=== PATIENT | female | born 1965 | race Hispanic/Latino ===

== ENCOUNTER → 2019-06-02 | Outpatient (CLI) | payer BC, OTHER | END | disposition home or self-care (01) | LOC: RAH 13:48 | PROVIDERS: ATTEND Family Medicine | DX: Z12.31 Encounter for screening mammogram for malignant neoplasm of breast (principal) | CPT/HCPCS: 77067 ==

== ENCOUNTER 2021-04-02 12:30 | Inpatient (IN) | payer OTHER ==
[~2021-04-02] VITALS: Ht 149.9 cm; Wt 81.4 kg
[2021-04-02 14:13] LABS: BASOPHILS % (AUTO) 0.7 % (0.0-5.0); EOSINOPHILS % (AUTO) 3.3 % (0.0-8.0); HEMATOCRIT 44.5 % (36-48); LYMPHOCYTES % (AUTO) 18.2 % (21.0-51.0); MEAN CORPUSCULAR HEMOGLOBIN 30.6 pg (27.0-33.0); MEAN CORPUSCULAR HGB CONC 32.4 g/dL (32.0-36.0); MEAN CORPUSCULAR VOLUME 94.5 fL (79-99); MONOCYTES % (AUTO) 7.8 % (3.0-13.0); NEUTROPHILS % (AUTO) 69.6 % (40.0-77.0); PLATELET COUNT (AUTO) 252 K/uL (130-400); RED BLOOD CELL COUNT(AUTO) 4.71 MIL/uL (4.00-5.50); RED CELL DISTRIBUTION WIDTH 11.8 % (11.0-15.5); WHITE BLOOD COUNT (AUTO) 6.8 K/uL (4.8-10.8)
[2021-04-04 11:42] VITALS: BP 139/67
[2021-04-04] MEDS ORDERED: LISI30TA4 PO (12:08)
[2021-04-05] VITALS (23 sets, daily range): BP systolic 124–148; BP diastolic 71–85
[2021-04-05] MEDS ORDERED: LACTATED RINGERS 1000ML 1,000 ML IV ONE (06:12)
[2021-04-05] MEDS ORDERED: CEFAZOLIN SODIUM 1 GM VIAL ONE (06:12)
[2021-04-05] MEDS ORDERED: LIDOCAINE PF 100MG/5ML (2%) SYRINGE 5ML ONE (06:33)
[2021-04-05] MEDS ORDERED: ROCURONIUM 10MG/1ML SYR 10 MG/ML ML ONE (06:33)
[2021-04-05] MEDS ORDERED: PROPOFOL 10 MG/ML 20ML VIAL IV ONE (06:33)
[2021-04-05] MEDS ORDERED: MIDAZOLAM HCL 1 MG/ML 2ML VIAL ONE (06:33)
[2021-04-05] MEDS ORDERED: ONDANSETRON 4MG INJ ONE (06:34)
[2021-04-05] MEDS ORDERED: FENTANYL CITRATE PF 50 MCG/1 ML 2ML VIAL ONE ×3 (06:34→08:51)
[2021-04-05] MEDS ORDERED: MAGNESIUM SULFATE 1 GM/2 ML VIAL ONE (06:37)
[2021-04-05] MEDS ORDERED: KETAMINE 50MG/ML SYRINGE 50 MG/ML DISP.SYRIN IV ONE (06:37)
[2021-04-05] MEDS ORDERED: PHENYLEPHRINE HCL 10 MG/ML 1ML VIAL IV ONE (07:37)
[2021-04-05] MEDS ORDERED: EPHEDRINE SULFATE 50 MG/ML AMPULE ONE (07:37)
[2021-04-05] MEDS ORDERED: METOCLOPRAMIDE 10 MG/2 ML VIAL ONE (08:37)
[2021-04-05] MEDS ORDERED: LACTATED RINGERS 1000ML 1,000 ML IV SCH (09:00)
[2021-04-05] MEDS ORDERED: CEFAZOLIN 3GM /D5W 100ML 100 ML IV SCH (09:00)
[2021-04-05] MEDS ORDERED: GLYCOPYRROLATE 1 MG/5 ML SYRINGE ONE (09:05)
[2021-04-05] MEDS ORDERED: NEOSTIGMINE 5MG/5ML SYR IV ONE (09:05)
[2021-04-05] MEDS ORDERED: ROPIVACAINE 0.5% 5MG/ML 30ML IJ ONE (09:41)
[2021-04-05] MEDS ORDERED: LIDOCAINE 2%-EPI 1:200,000 20 ML VIAL IJ ONE (09:41)
[2021-04-05] MEDS ORDERED: KETOROLAC 30MG VIAL (30MG/ML) ONE (09:43)
[2021-04-05] MEDS ORDERED: DOCUSATE SODIUM 100 MG CAP PO PRN (11:30)
[2021-04-05] MEDS ORDERED: BISACODYL 10 MG SUPP.RECT RC PRN (11:30)
[2021-04-05] MEDS ORDERED: PROMETHAZINE HCL 25 MG/ML 1ML AMPULE IM PRN ×2 (11:30)
[2021-04-05] MEDS ORDERED: SIMETHICONE 80 MG TAB.CHEW PO PRN (11:30)
[2021-04-05] MEDS ORDERED: ONDANSETRON 4MG INJ IVP PRN (11:30)
[2021-04-05] MEDS ORDERED: IBUPROFEN 600 MG TABLET PO PRN (11:30)
[2021-04-05] MEDS ORDERED: MEPERIDINE-PF 75 MG/ML SYG IM PRN (11:30)
[2021-04-05] MEDS: DEXTROSE 5%-LACTATED RINGERS 1,000 ML IV PRN ×2 (11:32→18:29)
[2021-04-05] MEDS: CEFAZOLIN SODIUM 1 GM VIAL IVP SCH ×2 (16:01→23:24)
[2021-04-05] MEDS: ACETAMINOPHEN WITH CODEINE 1 TAB TAB PO PRN ×2 (16:13→23:40)
[2021-04-06] MEDS: DEXTROSE 5%-LACTATED RINGERS 1,000 ML IV PRN (02:37)
[2021-04-06 03:00] VITALS: BP 124/78
[2021-04-06 05:46] LABS: HEMATOCRIT 32.5 % (36-48); MEAN CORPUSCULAR HEMOGLOBIN 30.7 pg (27.0-33.0); MEAN CORPUSCULAR HGB CONC 32.6 g/dL (32.0-36.0); MEAN CORPUSCULAR VOLUME 94.2 fL (79-99); RED BLOOD CELL COUNT(AUTO) 3.45 MIL/uL (4.00-5.50); RED CELL DISTRIBUTION WIDTH 11.9 % (11.0-15.5); WHITE BLOOD COUNT (AUTO) 11.4 K/uL (4.8-10.8)
[2021-04-06 08:05] VITALS: BP 116/71
[2021-04-06] MEDS: ACETAMINOPHEN WITH CODEINE 1 TAB TAB PO PRN (09:26)
[2021-04-06 11:27] VITALS: BP 111/64
[2021-04-06] MEDS ORDERED: IBUPROFEN 800 MG TAB ONE (15:11)
== END 2021-04-06 15:20 | disposition home or self-care (01) | DRG 983 ==
LOC: EDSTATUS 12:30 → DAHIP 04-05 05:55 → WSH 04-05 10:55
PROVIDERS: ADMIT Obstetrics & Gynecology; ATTEND Obstetrics & Gynecology
PROC: 0UB70ZZ Excision of Bilateral Fallopian Tubes, Open Approach (ICD-10-PCS; 2021-04-05)
PROC: 3E0T3BZ Introduction of Anesthetic Agent into Peripheral Nerves and Plexi, Percutaneous Approach (ICD-10-PCS; 2021-04-05)
PROC: 3E0T33Z Introduction of Anti-inflammatory into Peripheral Nerves and Plexi, Percutaneous Approach (ICD-10-PCS; 2021-04-05)
PROC: 0UT90ZZ Resection of Uterus, Open Approach (ICD-10-PCS; principal; 2021-04-05 07:26)
PROC: 0UB20ZZ Excision of Bilateral Ovaries, Open Approach (ICD-10-PCS; 2021-04-05 07:26)
DX: R19.09 Other intra-abdominal and pelvic swelling, mass and lump (principal); Z20.822 Contact with and (suspected) exposure to COVID-19; G89.29 Other chronic pain; I10 Essential (primary) hypertension
CPT/HCPCS: 36415; 84703; 85025; 85027; 86850; 86900; 86901; 87635; A4344; G0378; J0690; J1885; J2001; J2175; J2250; J2370; J2405; J2550; J2704; J2710; J2765; J2795; J3010; J3475; J3490; J7120

== ENCOUNTER → 2022-05-16 | Outpatient (CLI) | payer OTHER ==
[~2022-05-16] MED LIST: LISI30TA4 PO
== END | disposition home or self-care (01) ==
LOC: RAH 13:56
PROVIDERS: ATTEND Family Medicine
DX: Z12.31 Encounter for screening mammogram for malignant neoplasm of breast (principal)
CPT/HCPCS: 77067